=== PATIENT | female | born 1985 | race Caucasian/White ===

== ENCOUNTER 2017-01-21 13:49 | Emergency (ER) | payer SELFPAY ==
[2017-01-21 14:00] VITALS: BP 106/74
--- NOTE | 2017-01-21 14:56 | RAD ---
INDICATION: Left shoulder injury COMPARISON: None TECHNIQUE: Routine frontal, Y and axial views were obtained. FINDINGS: The bony structures, joint spaces, and soft tissues are normal for age. IMPRESSION: NEGATIVE EXAMINATION.
--- NOTE | 2017-01-21 14:58 | RAD ---
INDICATION: Wrist pain COMPARISON: None TECHNIQUE: AP, lateral, and oblique views were obtained. FINDINGS: The bony structures, joint spaces, and soft tissues are normal for age. IMPRESSION: NEGATIVE EXAMINATION.
--- NOTE | 2017-01-21 16:12 | UC ---
Upper Extremity HPI - HPI Summary HPI Summary: 7:40 AM PULLING LINEN OUT OF CAR. FELT POP IN LEFT SHOULDER, AND LEFT WRIST. PAIN WITH MOVEMENT,ALONG SCAPULA,WITH EXTENSION OF SHOULDER - History of Current Complaint Chief Complaint: UCUpperExtremity Stated Complaint: LEFT SHOULDER INJURY (WC) Time Seen by Provider: 01/21/17 14:02 Hx Obtained From: Patient Hx Last Menstrual Period: unknown Onset/Duration: Sudden Onset, Lasting Hours Severity Initially: Moderate Severity Currently: Moderate Pain Intensity: 8 Pain Scale Used: 0-10 Numeric Location Of Pain: Is Discrete @ - LEFT SHOUDLER, LEFT WRIST Character: Spasmodic, Stiffness Aggravating Factor(s): Movement, Extension, Internal/External Rotation Alleviating Factor(s): Nothing Associated Signs And Symptoms: Positive: Negative Related History: Dominant Hand Right - Risk Factors Non-Orthopedic Risk Factor: Negative DVT Risk Factors: Negative Septic Arthritis Risk Factor: Negative - Allergies/Home Medications Allergies/Adverse Reactions: Allergies Allergy/AdvReac Type Severity Reaction Status Date / Time No Known Allergies Allergy Verified 01/21/17 14:00 PMH/Surg Hx/FS Hx/Imm Hx Previously Healthy: Yes - Surgical History Surgical History: Yes Surgery Procedure, Year, and Place: umbilical hernia repair 2006 - Family History Known Family History: Negative: Other - NO JOINT LAXITY - Social History Occupation: Employed Full-time Lives: With Family Alcohol Use: None Substance Use Type: Excessive Caffeine Smoking Status (MU): Heavy Every Day Tobacco Smoker Type: Cigarettes Amount Used/How Often: 1ppd Cessation Counseling: Patient Advised to Stop Review of Systems Constitutional: Negative Skin: Negative Eyes: Negative ENT: Negative Respiratory: Negative Cardiovascular: Negative Gastrointestinal: Negative Genitourinary: Negative Motor: Negative Neurovascular: Negative Musculoskeletal: Arthralgia, Myalgia Neurological: Negative Psychological: Negative Is Patient Immunocompromised?: No All Other Systems Reviewed And Are Negative: Yes Physical Exam Triage Information Reviewed: Yes Appearance: Well-Appearing, No Pain Distress, Well-Nourished Vital Signs: Initial Vital Signs Temp 98.2 F 01/21/17 13:55 Pulse 88 01/21/17 13:55 Resp 14 01/21/17 13:55 BP 106/74 01/21/17 13:55 Pulse Ox 100 01/21/17 13:55 Vital Signs Reviewed: Yes Eye Exam: Normal ENT Exam: Normal ENT: Positive: Normal ENT inspection Dental Exam: Normal Neck exam: Normal Neck: Positive: Supple, Nontender, No Lymphadenopathy Respiratory Exam: Normal Respiratory: Positive: Chest non-tender, Lungs clear, Normal breath sounds, No respiratory distress, No accessory muscle use Cardiovascular Exam: Normal Cardiovascular: Positive: RRR, No Murmur, Pulses Normal, Brisk Capillary Refill Abdominal Exam: Normal Musculoskeletal: Positive: Strength Limited @ - LEFT SHOUDLER, ROM Limited @ - LEFT SHOULDER Neurological Exam: Normal Psychological Exam: Normal Skin Exam: Normal Upper Extremity Course/Dx - Differential Dx/Diagnosis Differential Diagnosis/HQI/PQRI: Fracture (Closed), Strain, Sprain Provider Diagnoses: LEFT WRIST SPRAIN; LEFT SHOULDER SPRAIN Discharge - Discharge Plan Condition: Stable Disposition: HOME Patient Education Materials: Shoulder Sprain (ED), Wrist Sprain (ED) Forms: *Work Release Referrals: [facility] [Outside] David Gardner MD [Medical Doctor] - If Needed No Primary Care Phys,NOPCP [Primary Care Provider] - Additional Instructions: PHYSICAL THERAPY REFERRAL: You have been prescribed physical therapy. Treatments may include stretching, exercise, application of heat or cold, and other modalities. After an injury, PT can reduce swelling and pain. In recovery, PT is used to restore mobility and strength. Your specific treatment goals are: ___X__ Reduction of Swelling (EGS, US, ice as needed) ___X__ Pain Reduction (EGS, US, ice as needed) ___X__ TENS Pack Fitting and Instruction Wound Hydrotherapy ___X_ Preservation of Mobility ___X__ Hindu of Mobility ____X_ Strength Hindu ___X__ Work or Sports Hardening This instruction sheet also serves as your PHYSICAL THERAPY REFERRAL! Please take it with you to the therapist, so he/she will be aware of your diagnosis and treatment plan. You may see the physical therapist of your choice for these treatments, but may wish to check with your insurance to be sure the provider you select is covered. It's important to see the doctor to whom you have been referred for follow up.
== END 2017-01-21 15:30 | disposition home or self-care (01) ==
LOC: UCCORT 13:49
DX: S43.402A Unspecified sprain of left shoulder joint, initial encounter (principal); S63.502A Unspecified sprain of left wrist, initial encounter; X50.0XXA Overexertion from strenuous movement or load, initial encounter; Y93.9 Activity, unspecified; Y92.9 Unspecified place or not applicable; Y99.9 Unspecified external cause status; F17.210 Nicotine dependence, cigarettes, uncomplicated
CPT/HCPCS: 84702; 99213; G0463

== ENCOUNTER 2017-06-20 19:28 | Emergency (ER) | payer SELFPAY ==
[2017-06-20 20:14] VITALS: BP 105/59
--- NOTE | 2017-06-20 20:18 | UC ---
UC General HPI - HPI Summary HPI Summary: PT IS CURRENTLY . SHE HAD A RUN OF SVT AND WAS TX WITH IV MEDICATION BY THE ER. SHE WAS D/C TO HOME WITH AN EVENT MONITOR X 30 DAYS. TODAY IS THE LAST DAY. PT NOTES HER SKIN HAS BECOME WEEPY AND RAW UNDER EACH PATCH. SHE WANTS TO KNOW WHAT TO PUT ON THE SITE AFTER REMOVING THOSE PATCHES TONIGHT. NO FEVER. SKIN IN BURNING AT EACH SITE. - History of Current Complaint Stated Complaint: SKIN ISSUE Time Seen by Provider: 06/20/17 20:11 Hx Obtained From: Patient Hx Last Menstrual Period: unknown Onset/Duration: Gradual Onset Timing: Constant Associated Signs & Symptoms: Negative: Fever - Allergy/Home Medications Allergies/Adverse Reactions: Allergies Allergy/AdvReac Type Severity Reaction Status Date / Time No Known Allergies Allergy Verified 06/20/17 20:14 PMH/Surg Hx/FS Hx/Imm Hx - Additional Past Medical History Additional PMH: , SVT - Surgical History Surgical History: Yes Surgery Procedure, Year, and Place: umbilical hernia repair 2006 - Family History Known Family History: Negative: Other - NO JOINT LAXITY - Social History Lives: With Family Alcohol Use: None Substance Use Type: Excessive Caffeine Smoking Status (MU): Heavy Every Day Tobacco Smoker Type: Cigarettes Amount Used/How Often: 1ppd - Immunization History Vaccination Up to Date: Yes Review of Systems Constitutional: Negative Skin: Rash Eyes: Negative ENT: Negative Respiratory: Negative Cardiovascular: Negative Gastrointestinal: Negative Genitourinary: Negative Motor: Negative Neurovascular: Negative Musculoskeletal: Negative Neurological: Negative Psychological: Negative Is Patient Immunocompromised?: No All Other Systems Reviewed And Are Negative: Yes Physical Exam Triage Information Reviewed: Yes Appearance: Well-Appearing Vital Signs Reviewed: Yes Eyes: Positive: Conjunctiva Clear ENT: Positive: Normal ENT inspection Neck: Positive: Supple, Nontender, No Lymphadenopathy Respiratory: Positive: Lungs clear, Normal breath sounds Cardiovascular: Positive: RRR, No Murmur Abdomen Description: Positive: Nontender, Soft Bowel Sounds: Positive: Present Musculoskeletal: Positive: ROM Intact Neurological: Positive: Alert Psychological: Positive: Age Appropriate Behavior Skin Exam: Normal Skin: Positive: Other - Pt has 3 electrode patches on her L trunk and one on R upper trunk. Underneath each site in the shape of the patch, the skin is pink and weepy but no malodor, warmth or exudate. The rash does not involve anywhere but where there is adhesive contact. Course/Dx - Course Course Of Treatment: exam is c/w a contact dermatitis. no sign of skin infection. will tx with topical steroid and close f/u for recheck. - Differential Dx - Multi-Symptom Provider Diagnoses: Contact dermatitis Discharge - Discharge Plan Condition: Stable Disposition: HOME Prescriptions: Triamcinolone 0.1% CREAM (NF) [Kenalog 0.1% Cream (NF)] 1 applic TOPICAL BID 5 Days #1 tube Patient Education Materials: Contact Dermatitis (DC) Referrals: Rosa Maldonado MD [Primary Care Provider] - 3 Days Additional Instructions: RINSE THE AREAS WITH GENTLE SOAP AND WATER. PAT DRY THEN APPLY A THIN LAYER OF THE STEROID CREAM TWICE DAILY FOR 5 DAYS.
== END 2017-06-20 20:51 | disposition home or self-care (01) ==
LOC: UCCORT 19:28
DX: L25.9 Unspecified contact dermatitis, unspecified cause (principal)
CPT/HCPCS: 99212; G0463

== ENCOUNTER 2018-01-14 19:40 | Emergency (ER) | payer OTHER ==
[2018-01-14 20:02] VITALS: BP 114/52
--- NOTE | 2018-01-14 20:28 | ED ---
Skin Complaint - HPI Summary HPI Summary: 32 yr old female with the complaint of left breast pain, redness, swelling, fever. The patient states that she is two weeks post , not breast feeding , she has pain in the above area for past few days. Went to [place] ER last night and left. Pain is 8/10, She took tylenol and motrin prior to coming here. She has had temp 100.4 today. - History of Current Complaint Chief Complaint: UCSkin Time Seen by Provider: 01/14/18 20:11 Stated Complaint: PERSONAL Hx Last Menstrual Period: unknown Pain Intensity: 10 - Allergy/Home Medications Allergies/Adverse Reactions: Allergies Allergy/AdvReac Type Severity Reaction Status Date / Time No Known Allergies Allergy Verified 01/14/18 20:02 Home Medications: Home Medications Acetaminophen TAB* [Tylenol TAB*] 650 mg PO Q4H PRN 01/14/18 [History Confirmed 01/14/18] Amoxicillin PO (*) [Amoxicillin 500 MG CAP*] 500 mg PO Q12H 01/14/18 [History Confirmed 01/14/18] Ibuprofen TAB* [Motrin TAB* 600 MG] 600 mg PO Q8H PRN 01/14/18 [History Confirmed 01/14/18] PMH/Surg Hx/FS Hx/Imm Hx Respiratory History: Reports: Hx Asthma - Surgical History Surgery Procedure, Year, and Place: umbilical hernia repair 2006 Infectious Disease History: No Infectious Disease History: Denies: Traveled Outside the [place] in Last 30 Days - Family History Known Family History: Negative: Other - NO JOINT LAXITY - Social History Alcohol Use: None Substance Use Type: Reports: Excessive Caffeine Smoking Status (MU): Heavy Every Day Tobacco Smoker Type: Cigarettes Amount Used/How Often: 1ppd Length of Time of Smoking/Using Tobacco: since age 13 Have You Smoked in the Last Year: Yes Review of Systems Positive: Fever, Chills Positive: Other - breast abscess All Other Systems Reviewed And Are Negative: Yes Physical Exam Triage Information Reviewed: Yes Vital Signs On Initial Exam: Initial Vitals Temp Pulse Resp BP Pulse Ox 99.2 F 116 15 114/52 99 01/14/18 19:56 01/14/18 19:56 01/14/18 19:56 01/14/18 19:56 01/14/18 19:56 Vital Signs Reviewed: Yes Appearance: Positive: Well-Appearing, No Pain Distress Skin: Positive: Other - left breast with mass of about 3-4 inches firm, pus coming from nipple, cellulitis to breast as well. Head/Face: Positive: Normal Head/Face Inspection Eyes: Positive: EOMI ENT: Positive: Normal ENT inspection Neck: Positive: Supple, Nontender Respiratory/Lung Sounds: Positive: Clear to Auscultation, Breath Sounds Present Cardiovascular: Positive: Tachycardia Abdomen Description: Negative: Distended Musculoskeletal: Positive: Strength/ROM Intact Neurological: Positive: Sensory/Motor Intact, Alert, Oriented to Person Place, Time, CN Intact II-III, Normal Gait, Speech Normal Psychiatric: Positive: Normal - [place] Coma Scale Best Eye Response: 4 - Spontaneous Best Motor Response: 6 - Obeys Commands Best Verbal Response: 5 - Oriented Coma Scale Total: 15 Diagnostics - Vital Signs Vital Signs Temp Pulse Resp BP Pulse Ox 01/14/18 19:56 99.2 F 116 15 114/52 99 - Laboratory Lab Statement: Any lab studies that have been ordered have been reviewed, and results considered in the medical decision making process. Course/Dx - Course Course Of Treatment: I Have contacted [facility] Oumou Bosch NP and notified them the patient is signing ama with refusal of ALS transport. She is driving by private car. I notified [facility] of my suspicion of possible breast abscess/ sepsis. - Diagnoses Provider Diagnoses: Mastitis, Abscess of breast Discharge - Sign-Out/Discharge Documenting (check all that apply): Patient Departure All imaging exams completed and their final reports reviewed: No Studies - Discharge Plan Condition: Good Disposition: AGAINST MEDICAL ADVICE Referrals: Rosa Maldonado MD [Primary Care Provider] - - Billing Disposition and Condition Condition: GOOD Disposition: Against Medical Advice
== END 2018-01-14 20:20 | disposition left against medical advice (07) ==
LOC: UCCORT 19:40
DX: N61.1 Abscess of the breast and nipple (principal); F17.210 Nicotine dependence, cigarettes, uncomplicated
CPT/HCPCS: 99212; G0463

== ENCOUNTER 2019-01-28 17:07 | Emergency (ER) | payer OTHER ==
[2019-01-28 17:40] VITALS: BP 106/67
--- NOTE | 2019-01-28 17:58 | UC ---
Throat Pain/Nasal Matt HPI - HPI Summary HPI Summary: C/O sore throat since yesterday. More severe today with some nasal congestion and cough. - History of Current Complaint Chief Complaint: UCRespiratory Stated Complaint: SORE THROAT Time Seen by Provider: 01/28/19 17:47 Hx Obtained From: Patient Hx Last Menstrual Period: unknown ?: No Onset/Duration: Sudden Onset, Lasting Days - 2, Worse Since - today Severity: Moderate Pain Intensity: 5 Cough: Nonproductive Associated Signs & Symptoms: Positive: Dysphagia, Nasal Discharge, Fever. Negative: Wheezing - Allergies/Home Medications Allergies/Adverse Reactions: Allergies Allergy/AdvReac Type Severity Reaction Status Date / Time No Known Allergies Allergy Verified 01/28/19 17:33 Home Medications: Home Medications Aspirin/Acetaminophen/Caffeine [Excedrin Migraine Caplet] 1 tab BID PRN [History Confirmed 01/28/19] PMH/Surg Hx/FS Hx/Imm Hx Cardiovascular History: Cardiac Disease Respiratory History: Asthma GI/ History: Gastroesophageal Reflux - Surgical History Surgical History: Yes Surgery Procedure, Year, and Place: umbilical hernia repair 2006. hysterectomy - Family History Known Family History: Positive: Cardiac Disease, Hypertension, Diabetes Negative: Other - NO JOINT LAXITY - Social History Occupation: Works From/At Home Lives: With Family Alcohol Use: None Substance Use Type: None Smoking Status (MU): Heavy Every Day Tobacco Smoker Type: Cigarettes Amount Used/How Often: 1 ppd Length of Time of Smoking/Using Tobacco: since age 13 Have You Smoked in the Last Year: Yes - Immunization History Vaccination Up to Date: Yes Review of Systems All Other Systems Reviewed And Are Negative: Yes Constitutional: Positive: Fever ENT: Positive: Sore Throat, Nasal Discharge Respiratory: Positive: Cough Physical Exam Triage Information Reviewed: Yes Appearance: No Pain Distress, Well-Nourished, Ill-Appearing - mild Vital Signs: Initial Vital Signs Temp 98.2 F 01/28/19 17:34 Pulse 90 01/28/19 17:34 Resp 16 01/28/19 17:34 BP 106/67 01/28/19 17:34 Pulse Ox 100 01/28/19 17:34 Vital Signs Reviewed: Yes Eyes: Positive: Conjunctiva Inflamed ENT: Positive: Pharynx normal, Nasal congestion, TMs normal Neck: Positive: Supple, Nontender, No Lymphadenopathy Respiratory: Positive: Lungs clear Cardiovascular: Positive: RRR, No Murmur Musculoskeletal Exam: Normal Neurological Exam: Normal Psychological Exam: Normal Skin Exam: Normal Throat Pain/Nasal Course/Dx - Differential Dx/Diagnosis Differential Diagnosis/HQI/PQRI: Epiglottitis, Laryngitis, Pharyngitis, URI Provider Diagnosis: Upper respiratory infection with cough and congestion Discharge ED - Sign-Out/Discharge Documenting (check all that apply): Patient Departure All imaging exams completed and their final reports reviewed: No Studies - Discharge Plan Condition: Stable Disposition: HOME Prescriptions: predniSONE TAB* [Deltasone 20 MG TAB*] 60 mg PO DAILY #18 tab Patient Education Materials: Upper Respiratory Infection (DC) Referrals: Rosa Maldonado MD [Primary Care Provider] - Additional Instructions: Start Coldeeze zinc lozenges tonight for the sore throat, congestion and cough. If the swallowing gets worse then bulk picker and start the prednisone - Billing Disposition and Condition Condition: STABLE Disposition: Home
== END 2019-01-28 18:11 | disposition home or self-care (01) ==
LOC: UCCORT 17:07
DX: J06.9 Acute upper respiratory infection, unspecified (principal); R05 Cough; J98.8 Other specified respiratory disorders; F17.210 Nicotine dependence, cigarettes, uncomplicated
CPT/HCPCS: 99212; G0463

== ENCOUNTER 2019-02-16 19:53 | Emergency (ER) | payer OTHER ==
[2019-02-16 20:16] VITALS: BP 111/70
--- NOTE | 2019-02-16 20:26 | UC ---
UC Dental HPI - HPI Summary HPI Summary: Pt c/o right side jaw and ear pain that radiates down neck X 4 days. Pt has been taking tylenol and ibuprofen with no improvement in pain - History of Current Complaint Chief Complaint: UCRespiratory Stated Complaint: EAR PAIN/DENTAL PAIN Time Seen by Provider: 02/16/19 20:20 Hx Obtained From: Patient Hx Last Menstrual Period: unknown ?: No Onset/Duration: Gradual Onset, Lasting Days, Still Present Severity: Moderate Pain Intensity: 7 Aggravating Factor(s): Chewing Alleviating Factor(s): Nothing Related History: Swelling - Allergies/Home Medications Allergies/Adverse Reactions: Allergies Allergy/AdvReac Type Severity Reaction Status Date / Time No Known Allergies Allergy Verified 02/16/19 20:09 PMH/Surg Hx/FS Hx/Imm Hx Previously Healthy: Yes - Surgical History Surgical History: Yes Surgery Procedure, Year, and Place: umbilical hernia repair 2006. hysterectomy - Family History Known Family History: Positive: Cardiac Disease, Hypertension, Diabetes Negative: Other - NO JOINT LAXITY - Social History Occupation: Unemployed Lives: With Family Alcohol Use: Rare Substance Use Type: None Smoking Status (MU): Heavy Every Day Tobacco Smoker Type: Cigarettes Amount Used/How Often: 1 ppd Length of Time of Smoking/Using Tobacco: since age 13 Have You Smoked in the Last Year: Yes - Immunization History Vaccination Up to Date: Yes Review of Systems All Other Systems Reviewed And Are Negative: Yes Constitutional: Positive: Negative Skin: Positive: Negative Eyes: Positive: Negative ENT: Positive: Dental Pain, Ear Ache Respiratory: Positive: Negative Cardiovascular: Positive: Negative Gastrointestinal: Positive: Negative Genitourinary: Positive: Negative Motor: Positive: Negative Neurovascular: Positive: Negative Musculoskeletal: Positive: Negative Neurological: Positive: Negative Psychological: Positive: Negative Is Patient Immunocompromised?: No Physical Exam Triage Information Reviewed: Yes Appearance: Pain Distress Vital Signs: Initial Vital Signs Temp 97.7 F 02/16/19 20:10 Pulse 90 02/16/19 20:10 Resp 16 02/16/19 20:10 BP 111/70 02/16/19 20:10 Pulse Ox 100 02/16/19 20:10 Vital Signs Reviewed: Yes Eye Exam: Normal ENT Exam: Normal ENT: Positive: Normal ENT inspection Dental: Positive: Percussion Tenderness @, Gross Decay/Caries @ Neck exam: Normal Respiratory Exam: Normal Respiratory: Positive: No respiratory distress Musculoskeletal Exam: Normal Neurological Exam: Normal Psychological Exam: Normal Skin Exam: Normal Dental Complaint Course/Dx - Differential Dx/Diagnosis Differential Diagnosis/Dx: Dental Abscess, Dental Caries Provider Diagnosis: Pain, dental, Poor dentition Discharge ED - Sign-Out/Discharge Documenting (check all that apply): Patient Departure All imaging exams completed and their final reports reviewed: No Studies - Discharge Plan Condition: Stable Disposition: HOME Prescriptions: Clindamycin Cap(NF) [Clindamycin Cap 300 mg Cap(NF)] 300 mg PO Q8H #30 cap Patient Education Materials: Toothache (ED) Referrals: Rosa Maldonado MD [Primary Care Provider] - Additional Instructions: Please follow up with your dental care provider as soon as possible. - Billing Disposition and Condition Condition: STABLE Disposition: Home
== END 2019-02-16 20:34 | disposition home or self-care (01) ==
LOC: UCCORT 19:53
DX: K08.89 Other specified disorders of teeth and supporting structures (principal); K00.7 Teething syndrome; F17.210 Nicotine dependence, cigarettes, uncomplicated
CPT/HCPCS: 99212; G0463